=== PATIENT | male | born 1950 | race Caucasian/White ===

== ENCOUNTER 2017-06-14 14:40 | Emergency (ER) | payer OTHER ==
[~2017-06-14] VITALS: Ht 172.7 cm; Wt 99.8 kg
[2017-06-14] MEDS ORDERED: MORPHINE SULFATE 2 MG/1 ML DISP.SYRIN IV ONE (14:45)
[2017-06-14] MEDS ORDERED: ONDANSETRON 4 MG/2 ML VIAL IV ONE (14:45)
[2017-06-14] MEDS ORDERED: ONDANSETRON HCL 4 MG TABLET PO ONE (14:45)
[2017-06-14] MEDS ORDERED: ONDANSETRON 4 MG/2 ML VIAL ONE (15:13)
[2017-06-14] MEDS ORDERED: MORPHINE SULFATE 2 MG/1 ML DISP.SYRIN ONE (15:13)
--- NOTE | 2017-06-14 15:17 | NUR ---
Light skin massage to right lower leg was done & right knee was supported with one pillow/blanket per patient's request. Pains decreased per patient's verbalization.
[2017-06-14 15:20] LABS: BASOPHILS # (AUTO) 0.1 K/uL (0.0-8.0); BASOPHILS % (AUTO) 0.9 % (0.0-2.0); EOSINOPHILS # (AUTO) 0.1 K/uL (0.0-0.7); EOSINOPHILS % (AUTO) 1.4 % (0.0-7.0); HEMOGLOBIN 12.4 G/DL (14.0-18.0); LYMPHOCYTES # (AUTO) 1.2 K/UL (0.8-4.8); LYMPHOCYTES % (AUTO) 19.8 % (20.5-51.5); MEAN CORPUSCULAR HEMOGLOBIN 29.5 UUG (27.0-31.0); MEAN CORPUSCULAR HGB CONC 33 g/dL (32.0-37.0); MEAN CORPUSCULAR VOLUME 88.4 FL (82.0-92.0); MONOCYTES # (AUTO) 0.4 K/UL (0.1-1.30); MONOCYTES % (AUTO) 6.2 % (0.0-11.0); NEUTROPHILS # (AUTO) 4.2 K/UL (1.8-8.9); NEUTROPHILS % (AUTO) 71.7 % (38.5-71.5); PLATELET COUNT (AUTO) 232 K/UL (150-450); RED BLOOD CELL COUNT(AUTO) 4.19 MIL/UL (4.7-6.1)
[2017-06-14 15:22] LABS: CREATININE 1.3 mg/dL (0.6-1.3); POTASSIUM 3.7 mmol/L (3.5-5.1)
[2017-06-14 15:27] LABS: BILIRUBIN,DIRECT 0.1 mg/dL (0.0-0.2); BILIRUBIN,TOTAL 0.5 mg/dL (0.2-1.0); TOTAL PROTEIN, SERUM 7.8 g/dL (6.4-8.2)
--- NOTE | 2017-06-14 15:42 | NUR ---
MD GRANADO SPEAKING TO BRENDA SANDHU AT THIS TIME.
--- NOTE | 2017-06-14 15:43 | NUR ---
PER MD GRANADO. PT WILL BE TRANSFERED TO [place]
[2017-06-14 16:21] LABS: *BILIRUBIN,URIN NEGATIVE (NEGATIVE); *BLOOD, URINE 2+ (NEGATIVE); *COLOR,URINE YELLOW (YELLOW); *KETONES,URINE NEGATIVE (NEGATIVE); *PROTEIN,URINE TRACE (NEGATIVE); *UROBILINOGEN,URINE 0.2 E.U./dl (NORMAL); LEUKOCYTE ESTERASE ,URINE 2+ (NEGATIVE); NITRITE, URINE NEGATIVE (NEGATIVE); UGLUCOSE NEGATIVE (NEGATIVE)
[2017-06-14 16:33] LABS: *CLARITY,URINE HAZY (CLEAR)
[2017-06-14 16:34] LABS: RBC,URINE 20-50 /HPF (0-3)
[2017-06-14 16:35] LABS: BACTERIA,URINE FEW /HPF (NONE SEEN); MUCUS,URINE MODERATE /LPF (0-FEW); WBC,URINE 20-50 /HPF (0-3)
--- NOTE | 2017-06-14 16:59 | NUR ---
PENDING CALL FROM [facility] REGARDING TRANSPORT AND ETA.
--- NOTE | 2017-06-14 17:10 | NUR ---
INFORMED MD GRANADO REGARDING PAIN MEDS
--- NOTE | 2017-06-14 17:10 | NUR ---
SPOKE TO [facility] FROM [place]. [phone]. PT WILL BE GOING TO [facility]. ACCEPTING MD IS DR. PEREZ. REPORT NUMBER WILL BE [phone]
--- NOTE | 2017-06-14 17:20 | NUR ---
REPORT GIVEN TO [facility] AT [phone].SPOKE TO JANU[facility] AND PHONE WAS TRANSFERED TO [facility]. AWARE OF PT'S CURRENT CONDITION. WILL CONTINUE PLAN OF CARE.
--- NOTE | 2017-06-14 17:29 | NUR ---
WHEN ASKED. PT VERBALIZED THAT PAIN SCALE IS 5/10. MD GRANADO IS AWARE. HOWEVER, WHEN TRANSPORT CAME TO MOVE PT. PT CHANGED PAIN SCALE FROM 5/10 TO 9/10. AND IS REQUESTING FOR DILAUDID AND TRAMADOL. MD GRANADO IS AWARE.
--- NOTE | 2017-06-14 17:30 | NUR ---
PATIENT IS TRANSFER TO OUTSIDE FACILITY: [facility] REPORT GIVEN TO [id number]. TO BLACKENER ESTEFANIA. AWARE OF PT'S CURRENT CONDITION. PER MD GRANADO PT IS STABLE FOR TRANSPORT. ACCEPTING MD: MD PEREZ PT WILL GO TO [facility] ER WHERE HE WILL BE RE-EVALUATED BY [facility] TEAM PT IS GOING VIA BLS TRANSPORT
--- NOTE | 2017-06-14 17:30 | NUR ---
PT VERBALIZED PAIN MEDICATION PRIOR TO GETTING TRANSFER. MD GRANADO AT BEDSIDE. AWARE. MD VERBALIZED ORDER OF "MORPHINE 4MG IVP NOW". WITNESSED BY CHARGE NURSE ASHISH AND PRIMARY RN KEREN. MEDCIATION ADMINISTERED PER MD'S ORDER. PER MD. "PT IS STABLE FOR TRANSFER"
[2017-06-14] MEDS ORDERED: MORPHINE SULFATE 4 MG/1 ML DISP.SYRIN IV ONE (18:00)
[2017-06-14] MEDS ORDERED: MORPHINE SULFATE 4 MG/1 ML DISP.SYRIN ONE (18:03)
== END 2017-06-14 17:40 | disposition short-term general hospital (02) ==
LOC: ER 14:40
DX: S72.91XA Unspecified fracture of right femur, initial encounter for closed fracture (principal); I10 Essential (primary) hypertension; Z88.6 Allergy status to analgesic agent; W18.30XA Fall on same level, unspecified, initial encounter; Y93.89 Activity, other specified; Y92.9 Unspecified place or not applicable; Y99.9 Unspecified external cause status
CPT/HCPCS: 36415; 70030-TC; 71010; 72170; 73502; 73551; 83605; 85025; 85730; 86850; 86900; 86901; 93005; A4663; J2270; J2405